=== PATIENT | female | born 1970 | race Asian ===

== ENCOUNTER → 2025-01-18 09:27 | Outpatient (REF) | payer OTHER, SELFPAY | LOC: HWRAD 09:27 | PROVIDERS: ATTENDING PHYSICIAN Student in an Organized Health Care Education/Training Program | DX: R10.13 Epigastric pain (principal) | CPT/HCPCS: 76700 ==

== ENCOUNTER → 2025-02-11 14:05 | Outpatient (REF) | payer OTHER, SELFPAY | LOC: HWWDC 14:05 | PROVIDERS: ATTENDING PHYSICIAN Student in an Organized Health Care Education/Training Program | DX: Z12.31 Encounter for screening mammogram for malignant neoplasm of breast (principal) | CPT/HCPCS: 77063; 77067 ==